=== PATIENT | male | born 2005 | race Caucasian/White ===

== ENCOUNTER → 2024-03-26 | Day surgery (SDC) | payer OTHER, SELFPAY ==
[2024-03-26 19:17] VITALS: BP 135/82; PULSE 96; RESP 18; TEMP 36.8; O2SAT 99; BMI 33.8
--- NOTE | 2024-03-26 19:29 | ED.VIS.FALL ---
HPI HPI - Fall History of Present Illness Chief Complaint: Trauma PFSH PFSH Medical History Dyslexia Home Medications ?Medication ?Instructions ?Recorded ?Last Taken ?Type NK 03/26/24 Unknown History Allergy/AdvReac Type Severity Reaction Status Date / Time No Known Allergies Allergy Verified 03/26/24 19:20 Family History no significant family his Social History household members: family Smoking Status: Never smoker EXAM Physical Exam Const Vital Signs: 03/26/24 19:17 03/26/24 20:30 03/26/24 21:12 Temperature 98.3 F Temperature Source Oral Pulse Rate 96 108 H Respiratory Rate 18 18 Respiratory Pattern Blood Pressure 135/82 H 138/82 H Blood Pressure [Assessment 10] 135/80 H Blood Pressure [Assessment 11] 137/77 H Blood Pressure [Assessment 12] 140/80 H Blood Pressure [Assessment 13] 143/98 H Blood Pressure [Assessment 14] 137/89 H Blood Pressure [Assessment 15] 135/84 H Blood Pressure [Assessment 16] 135/79 H Blood Pressure [Assessment 1] 90/46 L Blood Pressure [Assessment 2] 139/93 H Blood Pressure [Assessment 3] 135/83 H Blood Pressure [Assessment 4] 137/85 H Blood Pressure [Assessment 5] 134/77 H Blood Pressure [Assessment 6] 136/88 H Blood Pressure [Assessment 7] 134/87 H Blood Pressure [Assessment 8] 139/81 H Blood Pressure [Assessment 9] 133/86 H Blood Pressure Mean 99 100 Blood Pressure Source Blood Pressure Position Blood Pressure Location Baseline BP Pulse Ox 99 99 Oxygen Delivery Method Room Air 03/26/24 21:36 03/26/24 22:20 03/26/24 22:40 Temperature 97.6 F L Temperature Source Temporal Pulse Rate 95 Respiratory Rate 16 Respiratory Pattern Normal Blood Pressure 143/84 H Blood Pressure [Assessment 10] Blood Pressure [Assessment 11] Blood Pressure [Assessment 12] Blood Pressure [Assessment 13] Blood Pressure [Assessment 14] Blood Pressure [Assessment 15] Blood Pressure [Assessment 16] Blood Pressure [Assessment 1] Blood Pressure [Assessment 2] Blood Pressure [Assessment 3] Blood Pressure [Assessment 4] Blood Pressure [Assessment 5] Blood Pressure [Assessment 6] Blood Pressure [Assessment 7] Blood Pressure [Assessment 8] Blood Pressure [Assessment 9] 133/86 H Blood Pressure Mean 103 Blood Pressure Source Monitor Blood Pressure Position Semi-Fowlers Blood Pressure Location Right Arm Baseline BP 143/84 Pulse Ox 99 Oxygen Delivery Method Room Air [facility] [place] Narrative Medical decision making narrative: HISTORY OF PRESENT ILLNESS: 19 old male presents with traumatic finger amputations. The patient states this occurred at approximately 6:12 PM, 1 hour and 18 minutes prior to my evaluation REVIEW OF SYSTEMS: Pertinent positives: traumatic finger amputation Pertinent negatives: Fever PHYSICAL EXAM: Nursing triage notes reviewed, Vital signs reviewed Constitutional: please see mdm Extremities: Left upper extremity with obvious amputations of the distal phalanges of the left hand. Neuro: Intact sensation in radial, median ulnar nerve distributions Skin: Amputations noted of the second third and fourth digit of the left hand MEDICAL DECISION MAKING: Chief Complaint: Traumatic finger amputation History obtained from others: Patient's mother Consults: Plastic surgery (Dr. Julien) [facility] Narrative: Patient was hemodynamically stable, afebrile. Initial exam consistent with traumatic amputation of the left 2nd through 4th digits. Initially placed tourniquets to control bleeding. Patient was placed in a Betadine soaked provide initial antimicrobial therapy Gave the patient IV antibiotics. Obtained an x-ray, obtained labs including coagulation factors as well as updated the patient's tetanus. Consulted hand surgery who recommended OR Intervention. Patient was transferred to the OR stable condition. X-ray of the patient's left hand was read reviewed personally by myself showed traumatic amputations of the second third and fourth digits of left hand The patient and/or family, caregivers express understanding. The patient and/or family, caregivers agrees with the plan. Shared decision making: I will have a discussion with the patient and or visitors regarding risk/benefits of further testing or admission. They will be made aware of of the risk/benefits inherent in this decision they will be given the opportunity to voice understanding. Total critical care time today provided was at least 35 minutes. This excludes separately billable procedures. Critical care time (if documented) is secondary to the patient having high probability of clinically significant/life threatening deterioration in the patient's condition which required my urgent intervention. Impression: 1. Acute traumatic amputations of the distal phalanx of the left hand Dispo: Admit to OR This note was generated with Mapeation software. It may contain incorrect words, spelling, and punctuation that were not noted in review of the chart prior to signing. Lab Data Labs: Laboratory Results - last 24 hr 03/26/24 19:45 WBC 10.2 RBC 5.31 Hgb 15.1 Hct 44.7 MCV 84.2 MCH 28.4 MCHC 33.8 RDW Std Deviation 38.7 RDW Coeff of Cindy 12.7 Plt Count 236 MPV 10.1 Immature Gran % (Auto) 0.300 Neut % (Auto) 67.1 Lymph % (Auto) 20.8 Mineral % (Auto) 7.5 Eos % (Auto) 3.9 Baso % (Auto) 0.4 Absolute Neuts (auto) 6.9 Absolute Lymphs (auto) 2.12 Nucleated RBC % 0 PT 13.4 INR 1.0 APTT 24.3 Sodium 138 Potassium 3.5 Chloride 106 Carbon Dioxide 25.0 Anion Gap 7 BUN 19 H Creatinine 0.99 Estim Creat Clear Calc 154.61 Est GFR (MDRD) Af Amer 124 Est GFR (MDRD) Non-Af 102 BUN/Creatinine Ratio 19.2 Glucose 125 H Calcium 9.2 Radiography Diagnostic Testing: Clinical Impression(s) from Imaging Studies Hand X-Ray 03/26/24 19:55 IMPRESSION: Status post traumatic amputation of the tuft of the second distal phalanx, the near entirety of the third distal phalanx, and the distal one half of the fourth distal phalanx. Small fracture fragments are present at the residual third distal interphalangeal joint. Comminuted fragments of the second distal phalanx. Electronically Signed: Renny Flores DO at 20:40 EDT , Discharge Plan Dx/Rx/DC Orders Clinical Impression: Traumatic amputation of multiple fingers Disposition Disposition: Acute Care Hospital [facility] Discharge Date/Time: 03/26/24 20:39
[2024-03-26] MEDS: Morphine 4 MG/ML Syringe IV (19:48)
[2024-03-26] MEDS: Lidocaine 1% (20 ml mdv) 20 ML Vial 5 ML INFILT (19:48)
[2024-03-26] MEDS: Diphth,Pertuss(Acell),Tet Vac 0.5 ML Vial IM (19:48)
--- NOTE | 2024-03-26 19:55 | RAD_ITS ---
EXAM: XR LEFT HAND COMPLETE, 3 OR MORE VIEWS CLINICAL INDICATION: pain TECHNIQUE: Frontal, lateral and oblique views of the left hand. COMPARISON: No relevant prior studies available. FINDINGS: BONES/JOINTS: Status post traumatic amputation of the tuft of the second distal phalanx, the near entirety of the third distal phalanx, and the distal one half of the fourth distal phalanx. Small fracture fragments are present at the residual third distal interphalangeal joint. Comminuted fragments of the second distal phalanx. No sclerotic or destructive changes observed. SOFT TISSUES: Soft tissue swelling in the hand. No radiopaque foreign body. RAD/Hand Min 3 Views IMPRESSION: Status post traumatic amputation of the tuft of the second distal phalanx, the near entirety of the third distal phalanx, and the distal one half of the fourth distal phalanx. Small fracture fragments are present at the residual third distal interphalangeal joint. Comminuted fragments of the second distal phalanx. Electronically Signed: Renny Flores DO at 20:40 EDT ,
[2024-03-26] MEDS: Cefazolin 2 GM in Syringe IV (20:03)
[2024-03-26 20:13] LABS: Absolute Lymphocyte Count 2.12 X10^3/uL (0.83-4.51); Absolute Neutrophil Count 6.9 X10^3/uL (2.0-7.7); Basophil# 0.04 X10^3/uL; Basophil% 0.4 % (0-1); Eosinophils% 3.9 % (0-5); Hematocrit 44.7 % (40-54); Hemoglobin 15.1 g/dL (13.0-16.5); Lymphocyte # 2.12 X10^3/ul (0.83-4.51); Lymphocyte % 20.8 % (19-41); Mean Corp Hgb Conc 33.8 g/dL (32-36); Mean Corpuscular Hgb 28.4 pg (27.0-32.0); Mean Corpuscular Volume 84.2 fL (80-94); Mean Platelet Vol. 10.1 fl (6.2-12.0); Monocyte# 0.77 X10^3/uL; Monocyte% 7.5 % (0-10); NRBC Flagged by Analyzer 0 % (0-5); Neutrophil # 6.85 X10^3/uL (2.7-7.7); Neutrophil % 67.1 % (47-70); Platelet Count 236 K/mm3 (150-450); RBC Distribution Width CV 12.7 % (11.6-14.6); RBC Distribution Width SD 38.7 fl (35.1-43.9); Red Blood Count 5.31 M/mm3 (4.6-6.2); White Blood Count 10.2 K/mm3 (4.4-11.0)
[2024-03-26 20:16] LABS: Prothrombin Time (Protime)PT. 13.4 SECONDS (11.7-14.9)
[2024-03-26 20:17] LABS: Partial Thromboplast Time 24.3 Seconds (24.1-36.2)
[2024-03-26 20:23] LABS: Anion Gap 7 (5-15); BUN 19 mg/dL (7-18); BUN/Creat Ratio 19.2 RATIO (10-20); Calcium,Total 9.2 mg/dL (8.5-10.1); Chloride 106 mmol/L (98-107); Creatinine, Serum 0.99 mg/dL (0.70-1.30); EST Glomerular Filtration Rate 102 mL/min (>60); Est Glom Filt Rate - Afr Amer 124 mL/min (>60); Estimated Creatinine Clearance 154.61 ml/min; Glucose 125 mg/dL (74-106); Potassium 3.5 mmol/L (3.5-5.1); Sodium Level 138 mmol/L (136-145)
[2024-03-26 20:30] VITALS: BP 138/82; PULSE 108; RESP 18; O2SAT 99
--- NOTE | 2024-03-26 20:41 | EX.PCM.CON.S ---
Assessment & Plan Assessment/Plan (1) Traumatic amputation of multiple fingers: PLAN: I talked to the patient his mother extensively about the injury. I reviewed the x-rays. The long finger is amputated at the DIP joint. The index finger is amputated at the tuft. The ring finger is amputated between the base and the shaft. I talked to the patient and his mother about preserving length on the fingers as best as I could. The patient would like to get back to work as soon as possible. He understands the likelihood of shortening the fingers for soft tissue coverage, and understands the possibility of a possible V to Y advancement flap to save length. He also understands the possibility of using spare parts for coverage (the amputated skin). I talked to the patient and the family about placing the distal portions of the digits back, but recommended against this as being a 19-year-old that is unlikely that these digits will be well-perfused, but told him we could try this. He did not want to try this. I also talked to them about replantation of the digits with microscopic technique and told him that this was very unlikely given the distal nature of the injury (even on the long finger). I talked him about doing an under local in the operating room and he was in agreement. I talked to the patient about the risk benefits and alternatives to this procedure (revision amputations of index long and ring fingers of the left hand), and he agreed to proceed. He understands the risks of failure to obtain the desired result, nail deformities, osteomyelitis/other infections, bleeding, tissue necrosis and need for further surgeries, need for wound care. Plan to go to the operating room emergently for revision amputations of the left index long and ring fingers. 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 Patient was woodworking at home approximately 2 hours ago and sustained the injuries. The patient's mother brought the fingertips wrapped in a towel next to an ice pack. He has never hurt this hand before. Patient reporting sharp severe pain left upper extremity worsened by movements and improved with rest and elevation. He is not a smoker He is otherwise healthy and does not take any daily medications. No personal or family history of bleeding, clotting, or problems with anesthesia. Tetanus has been updated and he has been given 2 g of Ancef [facility] Medical History Dyslexia Home Medications ?Medication ?Instructions ?Recorded ?Last Taken ?Type NK 03/26/24 Unknown History Allergy/AdvReac Type Severity Reaction Status Date / Time No Known Allergies Allergy Verified 03/26/24 19:20 Family History no significant family his Social History household members: family Smoking Status: Never smoker Physical Exam Narrative Left upper extremity Tourniquet present on the fingers and it was removed for the exam Fingertips present and were well taken care of during transport Motor: Able to bend and extend all MP, PIP joints. He is unable to bend the DIP joint skin crease in the long finger, but he can bend the ring and index finger DIP joints. Sensory: Intact to light touch on the radial and ulnar borders. Vascular: Finger tips are warm and well perfused with <2 second capillary refill. Lab / Micro Data 03/26/24 19:45 03/26/24 19:45 Labs: Laboratory Results - last 24 hr 03/26/24 19:45: WBC 10.2, RBC 5.31, Hgb 15.1, Hct 44.7, MCV 84.2, MCH 28.4, MCHC 33.8, RDW Std Deviation 38.7, RDW Coeff of Cindy 12.7, Plt Count 236, MPV 10.1, Immature Gran % (Auto) 0.300, Neut % (Auto) 67.1, Lymph % (Auto) 20.8, Tyler % (Auto) 7.5, Eos % (Auto) 3.9, Baso % (Auto) 0.4, Absolute Neuts (auto) 6.9, Absolute Lymphs (auto) 2.12, Nucleated RBC % 0, PT 13.4, INR 1.0, APTT 24.3, Sodium 138, Potassium 3.5, Chloride 106, Carbon Dioxide 25.0, Anion Gap 7, BUN 19 H, Creatinine 0.99, Estim Creat Clear Calc 154.61, Est GFR (MDRD) Af Amer 124, Est GFR (MDRD) Non-Af 102, BUN/Creatinine Ratio 19.2, Glucose 125 H, Calcium 9.2 Imaging Radiology Impression Hand X-Ray 03/26/24 19:55 IMPRESSION: Status post traumatic amputation of the tuft of the second distal phalanx, the near entirety of the third distal phalanx, and the distal one half of the fourth distal phalanx. Small fracture fragments are present at the residual third distal interphalangeal joint. Comminuted fragments of the second distal phalanx. Electronically Signed: Renny Flores DO at 20:40 EDT , Charges/Coding Visit Charges Office Visits / Consults: 12102 OV L5 New 60min (with 57 modifier )
[2024-03-26] MEDS: Lidocaine 1% (20 ml mdv) 20 ML Vial (21:00)
[2024-03-26] MEDS: Bupivacaine 0.25% 30 ML Vial (21:00)
[2024-03-26 21:12] VITALS: BP 133/86; BP 134/77; BP 134/87; BP 135/79; BP 135/80; BP 135/83; BP 135/84; BP 136/88; BP 137/77; BP 137/85; BP 137/89; BP 139/81; BP 139/93; BP 140/80; BP 143/98; BP 90/46; O2SAT 100; O2SAT 96; O2SAT 98; O2SAT 99
[2024-03-26 21:36] VITALS: BP 133/86; O2SAT 100
--- NOTE | 2024-03-26 22:26 | DCINST_ITS ---
Discharge Instructions Diet Discharge Diet: No restrictions Activity Discharge Activity: - (Do not use the left upper extremity until cleared to do so (no lifting) ) Dressing / Incision Call your doctor if your incision/area has: Continuous Slow Oozing, Sudden Increased Bleeding, Increased Pain/ Swelling, Increased Redness, Foul Smelling Discharge and Swelling at the incision site Call your doctor if you observe: Fever of 101 or Higher Follow Up Care Please Follow Up With: Horacio Julien MD When: Sunday Test Results: Test results from this visit will be discussed in further detail at your follow- up appointment, if applicable. Discharge Plan Dx/Rx/DC Orders Clinical Impression: Traumatic amputation of multiple fingers Disposition Disposition: Acute Care Hospital [facility] Discharge Date/Time: 03/26/24 20:39
[2024-03-26 22:40] VITALS: BP 143/84; PULSE 95; RESP 16; TEMP 36.4; O2SAT 99
--- NOTE | 2024-03-27 08:13 | PCM.OPRPT ---
Operative Report (Standard) Operative Information Surgery/Procedure Performed: Revision amputation left ring, left middle, and left index fingers Surgeon: Horacio Julien Date of Procedure: 03/26/24 Procedure Start Time: 21:08 Procedure Stop Time: 22:09 Pre-Operative Diagnosis: Table saw injury to left ring, left long, and left index finger tips Post-Operative Diagnosis: same Select all DRAINS/GRAFTS/IMPLANTS that apply: None Type of Anesthesia: Local (20 cc of 0.25% marcaine with 1% lidocaine in a 50/50 mixture ) Estimated Blood Loss: 5 cc Fluids Replaced: None Specimen collected: No Description of surgery: PROCEDURES: 1) Revision amputation, left ring finger at the level of the DIP joint (CPT 12534) 2) Revision amputation, left long finger at the level of the DIP joint (CPT 47436) 3) Revision amputation, left index finger at the level of the distal phalanx shaft with Atasoy (V to Y advancement flap) for coverage of the stump (CPT 83173) INDICATIONS: Patient is a 19-year-old ovafu-avsi-bwxxyizl 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 He was taken by ambulance to the emergency department at [facility]. I saw and evaluated the patient in the emergency department and talked with him and his mother about the injury. His main goal is to get back to work as soon as possible, and after thorough discussion, he understood the risk, benefits, and alternatives to revision amputations. He wanted to proceed with revision amputation. OPERATIVE DETAILS: Patient was correctly identified in preoperative holding and taken back to the operating room where he was administered a local block. He was given time to take effect and he was prepped and draped in sterile fashion and a timeout was performed. Turnicot's were applied to the 3 injured fingers and care was taken to remove them at the end of the case. I began the procedure by washing out each of the wounds with 1 L of normal saline (3 L of total). The long finger was amputated at the level of the DIP joint with injury to the distal head of P2. A rongeur was used to smooth out the distal head of P2 of the left long finger and remove all of the cartilage. The digital nerves were identified and cut under traction. Bipolar electrocautery was used to cauterize the digital arteries and obtain hemostasis once the turnicot was removed. A volar flap was then rotated and advanced into position to cover the bone and sutured into place with 3-0 Chromic Gut suture. Attention was then turned to the ring finger. There was no DIP flexion (which was inaccurate on his preoperative exam as he was unable to bend it -no FDP). The FDP was avulsed from the small fragment of residual distal phalanx. I talked to the patient and the decision was made to remove the distal phalanx and amputate this digit at the level of the DIP joint. Again the cartilage Was rongeured away to prevent synovial fluid from collecting, care was taken to remove any potential residual germinal matrix on the dorsum, and the digital nerves were identified and cut under traction. Hemostasis was obtained with bipolar electrocautery once the turnicot was removed. A volar flap was then rotated and advanced into position over the bone and sutured with 3-0 Chromic Gut suture. Attention was then turned to the index finger. The index finger was bending and extending at the DIP joint. There was no mallet deformity and no signs of injury to the FDP. Care was taken to preserve length. The dorsal nail matrix was obliterated with tenotomy scissors and bipolar electrocautery. The rongeur was used to smooth out the shaft of the distal phalanx and then a volar V to Y advancement flap was designed with the tip of the V at the level of the DIP joint. Tenotomy scissors were used to raise the flap and cut the septum along the base of the flap to relieve tension and adherence to the volar surface of P3, and then a backcut was made along the superficial surface of the FDP at the tip of the V. Full-thickness skin cuts were then made on the V, with care taken to preserve the radial and ulnar digital arterial contributions. The flap was then rotated and advanced dorsally. And sutured into place with a 3-0 Chromic Gut suture and closed as a Y to provide coverage over the bone. The flap was warm and well-perfused at the end of the case. The patient tolerated the procedure well. There were no immediate postoperative complications. Xeroform Jenelle Coban and AlumaFoam were used to protect the digits. The turnicots had been removed. The patient was discharged home. Preoperative Ancef for perioperative antibiotic, to grams POST-OPERATIVE PLAN: Patient will follow-up with me in 2 days for wound check before the weekend. He has been prescribed a week of Keflex and pain medication. Surgical Findings: Ring finger flexor digitorum profundus was avulsed from the fragment of distal phalanx that was left in the wound bed. Injury to the index finger was at the level of the lunula (unable to salvage nail on index, but attempt made at keeping length with an Atasoy flap) Interventional Technologist sliver handler: Yes Employee Relations Consultant: Candie Mike Tasks completed by liaison inspection laboratory assistant: Retracting Complications Complications: No Admit VTE Documentation VTE Mechan Device Prophylaxis: SCD's
== END | disposition home or self-care (01) ==
LOC: ED 20:36 → AC 22:49
PROVIDERS: Emergency Provider Emergency Medicine; PCP Family Medicine; Referring Provider Surgery Plastic and Reconstructive Surgery; Visit Provider Surgery Plastic and Reconstructive Surgery
PROC: (CPT 26951; principal; 2024-03-26 21:00)
DX: S68.621A Partial traumatic transphalangeal amputation of left index finger, initial encounter (principal); S68.623A Partial traumatic transphalangeal amputation of left middle finger, initial encounter; S68.625A Partial traumatic transphalangeal amputation of left ring finger, initial encounter; W31.2XXA Contact with powered woodworking and forming machines, initial encounter
CPT/HCPCS: 26951 ×2; 26952; 73130; 80048; 85025; 85610; 85730; 90715; 99285; A4216

== ENCOUNTER 2024-04-07 07:53 | Day surgery (SDC) | payer OTHER, SELFPAY ==
--- NOTE | 2024-04-07 | AMP_PTH ---
PATIENT: LORRI HAM LOC: [facility] [place] U#:[id number] AGE/SX: 19/M ROOM: RE04/07/[address]: Dr. Horacio Julien MD : 2005 BED: DIS: 04/07/2024 SPEC #: [id number] RECD: 04/07/24 13:13 STATUS: ALANNA REJian #: [id number] NAI: 04/07/24 00:[address]: Horacio Julien DEPT: SURGICAL PATHOLOGY RECD BY: Donn Vaca ENTERED: 04/07/24 13:14 SP TYPE: Amputation OTHR DR: Cherie Kang PA-C Tissues: Finger, NOS Procedures: Decalcification bone/plaque Surgery Specimen Level IV HEADER OPERATION: Revision amputation of left index finger PRE-OP DIAGNOSIS: Left index finger necrosis after revision amputation with attempt at index finger salvage with atasoy flap TISSUE SUBMITTED: Distal phalanx left index finger MICROSCOPIC DIAGNOSIS Distal phalanx left index finger, revision amputation: A piece of bone with reactive changes and hemorrhage. See comment. 04/09/2024 COMMENT Clinical correlation and appropriate follow up are necessary. MICROSCOPIC DESCRIPTION Slides are reviewed. GROSS DESCRIPTION Received in fixative is one container labeled with the patient's name and designated Distal phalanx left index finger. The specimen consists of a piece of bone measuring 1.2 x 1.0 x 0.7cm. The specimen is sectioned and submitted entirely in one cassette after decalcification. 04/07/2024 TC:5 CPT:79615,78102
[2024-04-07 08:32] VITALS: BP 146/86; PULSE 97; RESP 16; TEMP 37.4; O2SAT 99; BMI 32.8
--- NOTE | 2024-04-07 08:44 | PCM.HP.STD ---
HPI - General HPI Narrative LORRI HAM, is a 19 M who presents with tissue loss on his left index finger (necrosis) after revision amputations with attempt at index finger salvage with an Atasoy flap. Current Encounter (DATE OF SURGERY H&P UPDATE): I saw and examined the patient this morning in pre-operative holding. We discussed risks and benefits of today's surgery and they would like to proceed. NO CHANGE in health history since last seen and evaluated. Ready to proceed with surgery. [facility] Medical History Dyslexia Home Medications ?Medication ?Instructions ?Recorded ?Last Taken ?Type NK 03/26/24 Unknown History Allergy/AdvReac Type Severity Reaction Status Date / Time No Known Allergies Allergy Verified 04/07/24 08:17 Surgical History History of amputation of finger of left hand Social History household members: family Smoking Status: Never smoker alcohol intake: never substance use type: does not use Physical Exam Narrative Inspection: Incisions clean and dry Index finger Atasoy flap mostly non-viable on exam (distal and central necrosis). Able to bend and extend all MP, PIP joints. Able to bend and extend index DIP joint. Sensory: Intact to light touch on the radial and ulnar borders. Vascular: Finger tips are warm and well perfused with <2 second capillary refill. Assessment & Plan Assessment/Plan (1) Traumatic amputation of multiple fingers: PLAN: Plan I talked to the patient and his mother extensively about the index fingertip today in clinic. We talked about attempting to preserve length on the finger and keeping the FDP/terminal slip insertions on the proximal shaft/base of the distal phalanx bone. I talked to them extensively about the tissue necrosis of the flap covering this bone. We talked about the risk benefits and alternatives of different options. The first option we discussed was continued dressing changes/drying the eschar with Betadine paint, with as needed debridement and wound care. We talked about how this could potentially enable healing over the bone, but that it may take weeks to months, and there is potential for infection of the bone and subsequent need for debridement/revision amputation/long-term antibiotics. 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 The next option that was discussed was debridement of the nonviable soft tissue, with shortening versus complete revision amputation through the DIP joint of the left index finger in the operating room. This would be a more definitive option for reconstruction and allow him to return to work sooner. The final option we discussed was excision of the necrotic tissue with reconstruction using a flap for coverage of the bone/tendon. The flap that we discussed in particular was the thenar flap, and I discussed with him that he would have his finger sutured to his thenar eminence soft tissue for approximately 3 weeks, which could lead to excellent soft tissue coverage over the index, but also finger stiffness with need for therapy, and there is no guarantee that the flap would survive, or cover the bone appropriately. We also talked about a Abbie flap. I also talked to him about a microsurgical reconstruction with a posterior interosseous artery railway equipment operator flap, and discussed incisions that would need to be done proximally on the finger to get out of the zone of injury, and he was not interested in this option. After thorough discussion of the local and regional flap reconstruction options, he did not want to undergo flap reconstruction of the index finger. He is not interested in continuing wound care and would like a definitive reconstruction. He would like revision amputation of the left index finger, possibly to the level of the DIP joint if needed. He understands that this will further decrease some of the hand function, but that he should have good hand function overall after he is healed. His goals are to get back to work as soon as possible. I also talked to him about the risk benefits of revision amputation and the possibility of further wound problems despite trimming the finger back, and these wound problems would be over the middle phalanx. He understands all the risk benefits and alternatives. His mother was there for the discussion and all her questions were answered as well. They would like to proceed with revision amputation surgery, likely to the level of the DIP joint of the left index finger. INTERVAL H&P PLAN, DATE OF SURGERY: We will proceed with surgery today. Re-iterated plan for revision (shortening) of the amputation to the DIP joint of the left index finger. Patient in agreement and would like to proceed.
[2024-04-07 09:00] VITALS: BP 125/78; BP 135/79; O2SAT 100; O2SAT 97; O2SAT 98; O2SAT 99
[2024-04-07] MEDS: Cefazolin 2 GM in Syringe IV (09:10)
[2024-04-07] MEDS: 0.9% Saline Lock 10 ML Syringe IV (09:10)
[2024-04-07] MEDS: Lidocaine 1% (20 ml mdv) 20 ML Vial (09:15)
[2024-04-07] MEDS: Bupivacaine 0.25% 30 ML Vial (10:02)
[2024-04-07 10:34] VITALS: BP 128/81; BP 146/86; PULSE 81; RESP 16; TEMP 37.1; O2SAT 98
--- NOTE | 2024-04-07 20:51 | OP.PCM_ITS ---
Operative Report (Standard) Operative Information Surgery/Procedure Performed: 1) Revision amputation left index finger (through distal interphalangeal (DIP) joint), CPT 66279 Surgeon: Horacio Julien Date of Procedure: 04/07/24 Procedure Start Time: 09: Procedure Stop Time: 10:03 Pre-Operative Diagnosis: Necrotic left index finger tip Post-Operative Diagnosis: Same Select all DRAINS/GRAFTS/IMPLANTS that apply: None Type of Anesthesia: Local (3 cc of Marcaine 0.25% and 6 cc of lidocaine 1% ) Estimated Blood Loss: minimal Specimen collected: Yes Description of specimen(s) removed: Distal phalanx base Description of surgery: Indications: Haroon Kowalski is a delightful 19-year-old male who recently underwent revision amputations of the left index long and ring fingers after tablesaw trauma. 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 I attempted to save length on his left index finger by performing a V to Y advancement flap, which at least in part developed necrosis. He presents today for debridement and likely revision amputation. After extensive discussion, patient does not want to undergo any dorsal advancement flaps, a thenar flap, or any other methods of reconstruction other than shortening the digit to promote healing as fast and is healthy as possible. Procedure Details: Patient was correctly identified in preoperative holding and the left index finger was marked. He was taken back to the operating room where he was administered a local block. He was prepped and draped in sterile fashion and all proper timeouts were performed. I began the procedure by using a 15 blade scalpel to excise the necrotic distal edges of the V to Y advancement flap. The flap was viable and the proximal one third, but nonviable in the distal one third. The distal one third was covering the base of the distal phalanx, and therefore this was exposed (with tendon insertions). I talked to the patient preoperatively and reiterated to him the problem and the options (risk benefits and alternatives), including an attempted a dorsal advancement flap. He was not interested in this option and wanted to pursue distal interphalangeal joint level amputation. 15 blade scalpel was then used to circumferentially dissected around the distal phalanx base and remove the tendon insertions and the collateral ligaments and volar plate. The specimen was sent to pathology. Hemostasis was obtained with bipolar electrocautery. The dorsal and volar flaps were trimmed to fit and traction neurectomies were performed. The joint cartilage of the middle phalanx was rongeured to prevent fluid collection. The wound was irrigated with copious amounts normal saline. the flaps were then advanced over the bone and sutured together with 3-0 Chromic Gut suture loosely so as to prevent necrosis. Xeroform, Jenelle, AlumaFoam, and Coban were applied loosely. The patient tolerated the procedure well was taken to the PACU in stable condition. Surgical Findings: Two thirds necrosis of the V to Y advancement flap with exposed bone Universal Winding Machine Operator telesales team leader: No Complications Complications: No Admit VTE Documentation VTE Mechan Device Prophylaxis: SCD's
== END 2024-04-07 10:37 | disposition home or self-care (01) ==
LOC: SDC 07:54 → AC 07:56
PROVIDERS: PCP Family Medicine; Referring Provider Surgery Plastic and Reconstructive Surgery; Visit Provider Surgery Plastic and Reconstructive Surgery
PROC: (CPT 26951; principal; 2024-04-07 08:45)
DX: L76.82 Other postprocedural complications of skin and subcutaneous tissue (principal); I96 Gangrene, not elsewhere classified; S68.62 Partial traumatic transphalangeal amputation of other and unspecified finger; W31.2XXS Contact with powered woodworking and forming machines, sequela
CPT/HCPCS: 26951; 88305; 88311; A4216; J2405

== ENCOUNTER 2024-06-26 08:30 | Outpatient (RCR) | payer OTHER, SELFPAY ==
--- NOTE | 2024-05-08 09:04 | HP.OTEVAL_ITS ---
Patient's Visit Information Visit Information Visit Information: LORRI HAM is a 19 year old M, referred to Occupational Therapy by CATHERINE Singh, with a diagnosis of S68.1119A traumatic metacarpophalangeal amputation. Date of Evaluation: 05/08/24 Occupational Therapist: Jessica Colunga Subjective Subjective: This 19 year old male arrives with L hand amputation IF, MF, RF distal end. Pt was using table saw and cut them off. 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 Pt is R hand dominant. Pt amputation 04/03/24 then revision 04/07/24. pt is now 4 weeks out healing well states little pain however does get pin and needle sensation at tip of finger. pt is currently on light duty at work protects hands with band aids at this time and wrapping at night. Objective Objective/Observation: arrives healing well small opening to revision location of IF. swelling to tips of digits. MF and RF dog ear shape IF rounded ROM Wrist: wfl CMC: wfl MP: wfl IP: wfl Radial Abduction: wfl Palmar Abduction: wfl Opposition: wfl MP: D2 0/80 D3 0/85 D4 0/80 PIP: D2 0/75 D3 0/75 D4 0/65 DIP: n/a ROM Comments: 4 cm MF to palm Strength Transportation Inspector: L hand 35# R 110# Lateral Pinch: L 15# R 20# Tripod Pinch: L 0# R 15# Edema Other: L IF 65 cm L MF 7 cm L RF 6.5 Sensation Sensation Comments: D 2-4 2.83 proximally on finger then 3.22 at very tip of digits where amputation occurs not demonstrating hypersensitivity at this time unable to feel 2.63 at this time L hand D2-4 reports tingling sensation at tips of digit Quick DASH-Disab of Arm,Shoulder& Hand Quick DASH Score: 56.8175 Goals Goal:: pt will improve L hand director distribution strength equal to non affected UE in order to return to day to day activities pt will improve L hand lateral as well as tripod pinch strength equal to or greater than non affected UE in order to improve day to day activities Goal:: pt will demonstrate ROM equal to non affected UE in order to perform day to day tasks Goal:: Pt will decrease swelling of D2-4 equal to non affected UE in order to promote healing and shape of digit pt will demonstrate 100% accuracy in proper wrapping of digits for swelling well as residual limb shaping by second session Goal:: Pt will report reduction in tingling sensation in D2-D4 to none by discharge Goal:: pt will improve quick dash score by 10 points or more in order to promote increased functional use of L hand Rehabilitation General Assessment: This 19 year old male arrives s/p D2-4 traumatic metacarpophalangeal amputation at DIP level. Pt presents with tingling sensation to tips of digits. limitations in ROM as well as decreased strength of L hand and swelling. pt would benefit from OT services 1x a week for 4-6 weeks in order to return to day to day functional tasks. Rehabilitation Potential: Good Anticipated Interventions Anticipated Interventions: A/AAROM/PROM, Strengthening, Edema Control, Scar Care, Triggerpoint Release, Desensitization, Sensory Retraining, Wound Care, Orthoses, Sensory Stimulation, Education re Diagnosis and Home Program Visit Plan Frequency: 1x/Week Duration: 4-6 Weeks General Plan: AROM/AAROM/PROM strengthening edema management desensitization TEXT: Thank you for the opportunity to evaluate your patient. For Medicare and Medicare HMO plans, please review the plan of care and approve it. It will need to be FAXED BACK to us at [phone] for Medicare purposes. Please let me know if there are questions or concerns regarding this plan of care. Physician Signature: Date:
--- NOTE | 2024-06-26 10:02 | HP.OTDCSUM ---
Discharge Summary D/C Summary: It has been my pleasure to treat LORRI HAM under orders from CATHERINE Singh, for the diagnosis of S68.1119A traumatic metacarpophalangeal amputation for a total of 6 visit(s). Please see the following information for a summary of their discharge status. 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 80# L lateral pinch 12# L hand tripod pinch 8# R lateral pinch 18# R tripod pinch 15# Goals Patient Goals: Regain Strength, Decrease Swelling/Stiffness, Use Hand/Wrist/Arm Normally Again, Increase ROM, Decrease Sensitivity, Resume Former Household Responsibilities (Cooking,Cleaning,Yard, etc.) and Resume Hobbies Goal:: pt will improve L hand sheet metal shop supervisor strength equal to non affected UE in order to return to day to day activities not mat L hand 45# R hand 80# pt will improve L hand lateral as well as tripod pinch strength equal to or greater than non affected UE in order to improve day to day activities not met Goal:: pt will demonstrate ROM equal to non affected UE in order to perform day to day tasks goal met Goal:: Pt will decrease swelling of D2-4 equal to non affected UE in order to promote healing and shape of digit pt will demonstrate 100% accuracy in proper wrapping of digits for swelling well as residual limb shaping by second session Goal:: Pt will report reduction in tingling sensation in D2-D4 to none by discharge Goal:: pt will improve quick dash score by 10 points or more in order to promote increased functional use of L hand Plan Plan: discharge D/C Information Discharge Comments: This 19 year old male seen for OT with L hand dip amputation of IF, MF and RF. pt progressed throughout POC in ROM strength decreased pain and hypersensitivity as well as improved shaping of limb decreased swelling. pt discharge at this time to continue to work on strengthening of hand and pinch at home as well as shaping of digits. pt in agreeance. d/c sentence: If there are questions or concerns regarding this patient's occupational therapy, please fell free to call me at [phone]. Thank you for the referral of this patient. Sincerely, Jessica Colunga
--- NOTE | 2024-06-26 10:03 | HP.OTDCNRP_ITS ---
Patient Information Patient Information: LORRI HAM was seen in my office for initial evaluation on 05/08/24. The following Plan of Care was established for this patient: POC Established Initial Frequency: 1x/Week Initial Duration: 4-6 Weeks Plan: discharge Anticipated Interventions Anticipated Interventions: A/AAROM/PROM, Strengthening, Edema Control, Scar Car e, Triggerpoint Release, Desensitization, Sensory Retraining, Wound Care, Orthoses, Sensory Stimulation, Education re Diagnosis and Home Program Last Seen Last Seen: This patient was last seen in our office 06/26/24. Pertinent comments regarding their Occupational therapy will appear below: This 19 year old male seen for OT with L hand dip amputation of IF, MF and RF. pt progressed throughout POC in ROM strength decreased pain and hypersensitivity as well as improved shaping of limb decreased swelling. pt discharge at this time to continue to work on strengthening of hand and pinch at home as well as shaping of digits. pt in agreeance. At this point I will be discontinuing this patient from occupational therapy. I would be happy to see this patient again in the future if found appropriate by the physician. Thank you! Jessica Colunga
== END 2024-06-26 19:00 | disposition home or self-care (01) ==
LOC: OT 08:30
PROVIDERS: PCP Family Medicine; Referring Provider Nurse Practitioner Family; Visit Provider Nurse Practitioner Family
DX: S68.119D Complete traumatic metacarpophalangeal amputation of unspecified finger, subsequent encounter (principal)
CPT/HCPCS: 97110; 97140; 97165; 97530